=== PATIENT | female | born 1970 | race Caucasian/White ===

== ENCOUNTER → 2024-08-23 15:58 | Outpatient (REF) | payer BC, SELFPAY | LOC: HWWDC 15:58 | PROVIDERS: ATTENDING PHYSICIAN Advanced Practice Midwife; FAMILY PHYSICIAN Nurse Practitioner Adult Health | DX: Z12.31 Encounter for screening mammogram for malignant neoplasm of breast (principal) | CPT/HCPCS: 77063; 77067 ==

== ENCOUNTER 2025-02-13 06:27 | Day surgery (SDC) | payer BC, SELFPAY | END 2025-02-13 10:14 | disposition home or self-care (01) | LOC: GI 06:27 | PROVIDERS: ATTENDING PHYSICIAN Surgery | DX: Z12.11 Encounter for screening for malignant neoplasm of colon (principal); K64.9 Unspecified hemorrhoids; Z86.0100 Personal history of colon polyps, unspecified; Z80.0 Family history of malignant neoplasm of digestive organs | CPT/HCPCS: G0105 ==